=== PATIENT | male | born 1930 | race Caucasian/White ===

== ENCOUNTER 2020-05-23 14:49 | Inpatient (IN) | payer MEDICARE ==
[2020-05-23 15:17] LABS: #Eosinphils 0.2 thou/uL (0.0-0.7); #Lymphocytes 1.6 thou/uL (1.20-3.40); #Monocytes 0.8 thou/uL (0.11-0.59); %Basophils 0.6 % (0.0-1.0); %Eosinophils 3.1 % (0.0-10.0); %Lymphocytes 21.1 % (21.0-51.0); %Monocytes 10.1 % (0.0-10.0); %Neutrophils 65.1 % (42.0-75.0); Hemoglobin 15.2 g/dL (14.0-18.0); Mean Corpuscular HGB CONC 32.3 g/dL (32.0-36.0); Mean Corpuscular Hemoglobin 30.5 pg (27.0-31.0); Mean Corpuscular Volume 94.3 fL (78.0-98.0); Mean Platelet Volume 8.9 fL (7.4-10.4); Platelet Count 175 thou/uL (130-400); RBC Distribution Width 14.2 % (11.5-14.5); Red Blood Cell (RBC) Count 4.98 mill/uL (4.70-6.10); White Blood Cell (WBC) Count 7.6 thou/uL (4.8-10.8)
[2020-05-23 15:24] LABS: PTT 34.6 sec (22.9-36.1); Prothrombin Time 13.8 sec (12.0-14.7)
[2020-05-23 15:35] LABS: ALT (SGPT) 19 U/L (8-55); AST (SGOT) 14 U/L (5-34); Albumin 3.7 g/dL (3.4-4.8); Alkaline Phosphatase 112 U/L (40-110); Anion Gap 12 mmol/L (10-20); BUN (Urea Nitrogen) 19 mg/dL (8.4-25.7); Bilirubin, Total 0.7 mg/dL (0.2-1.2); CK (CPK) 62 U/L (30-200); Calc. Creatinine Clearance 0 mL/min (70-130); Calcium 9.1 mg/dL (7.8-10.44); Carbon Dioxide 26 mmol/L (23-31); Chloride 109 mmol/L (98-107); Globulin 2.8 g/dL (2.4-3.5); Glucose 63 mg/dL (83-110); Potassium 4.2 mmol/L (3.5-5.1); Protein, Total 6.5 g/dL (5.8-8.1); Sodium 143 mmol/L (136-145)
[2020-05-23] MEDS ORDERED: Dexamethasone 10 MG/ML VIAL ONE (16:31)
[2020-05-23] MEDS ORDERED: Acetaminophen 325 MG TAB PO PRN (20:17)
[2020-05-23] MEDS ORDERED: HYDROcodone/Acetaminophen 5/325 mg Tablet PO PRN (20:17)
[2020-05-23] MEDS ORDERED: Ondansetron PF 4 MG/2 ML Vial IVP PRN (20:17)
[2020-05-23] MEDS ORDERED: Dextrose 5% in Water 1,000 ML IV PRN (20:17)
[2020-05-23] MEDS ORDERED: Ondansetron ODT 4 MG TAB PO PRN (20:17)
[2020-05-23] MEDS ORDERED: Dextrose 50% Abboject 50 ML SYRINGE SLOW IVP PRN (20:17)
[2020-05-24] MEDS ORDERED: Dextrose 50% Abboject 50 ML SYRINGE SLOW IVP PRN (00:14)
[2020-05-24] MEDS ORDERED: Dextrose 5% in Water 1,000 ML IV PRN (00:14)
[2020-05-24 01:55] LABS: SARS-CoV-2 PCR by NAA Not Detected (NotDetected)
[2020-05-24 04:52] LABS: #Lymphocytes 1.1 thou/uL (1.20-3.40); #Monocytes 0.2 thou/uL (0.11-0.59); #Neutrophils 6.4 thou/uL (1.40-6.50); %Lymphocytes 14.8 % (21.0-51.0); %Monocytes 2.4 % (0.0-10.0); %Neutrophils 82.7 % (42.0-75.0); Hemoglobin 15.3 g/dL (14.0-18.0); Mean Corpuscular HGB CONC 32.2 g/dL (32.0-36.0); Mean Corpuscular Hemoglobin 30.3 pg (27.0-31.0); Mean Platelet Volume 8.7 fL (7.4-10.4); Platelet Count 167 thou/uL (130-400); RBC Distribution Width 14.2 % (11.5-14.5); Red Blood Cell (RBC) Count 5.05 mill/uL (4.70-6.10); White Blood Cell (WBC) Count 7.7 thou/uL (4.8-10.8)
[2020-05-24 05:13] LABS: Anion Gap 14 mmol/L (10-20); BUN (Urea Nitrogen) 21 mg/dL (8.4-25.7); Calc. Creatinine Clearance 50 mL/min (70-130); Calcium 9.4 mg/dL (7.8-10.44); Carbon Dioxide 25 mmol/L (23-31); Chloride 107 mmol/L (98-107); Glucose 130 mg/dL (83-110); Potassium 4.4 mmol/L (3.5-5.1); Sodium 142 mmol/L (136-145)
[2020-05-24] MEDS: Dexamethasone 1 MG TAB PO SCH ×2 (08:58→17:04)
[2020-05-24] MEDS: HumaLOG 300 UNITS/3 ML VIAL SC PRN ×2 (11:43→21:26)
[2020-05-24] MEDS ORDERED: levETIRAcetam in NS 500 MG in Premix Bag 1 BAG IVPB SCH (12:30)
[2020-05-24] MEDS: levETIRAcetam in NS 500 MG in Premix Bag 1 BAG IVPB SCH (21:26)
[2020-05-25 02:47] LABS: #Basophils 0.1 thou/uL (0.0-0.2); #Lymphocytes 1.4 thou/uL (1.20-3.40); #Monocytes 0.7 thou/uL (0.11-0.59); #Neutrophils 9.7 thou/uL (1.40-6.50); %Basophils 0.7 % (0.0-1.0); %Eosinophils 0.3 % (0.0-10.0); %Lymphocytes 11.7 % (21.0-51.0); %Monocytes 6.2 % (0.0-10.0); %Neutrophils 81.1 % (42.0-75.0); Hemoglobin 15.4 g/dL (14.0-18.0); Mean Corpuscular HGB CONC 31.4 g/dL (32.0-36.0); Mean Corpuscular Hemoglobin 30.1 pg (27.0-31.0); Mean Corpuscular Volume 95.7 fL (78.0-98.0); Mean Platelet Volume 9.1 fL (7.4-10.4); Platelet Count 183 thou/uL (130-400); RBC Distribution Width 14.4 % (11.5-14.5); Red Blood Cell (RBC) Count 5.12 mill/uL (4.70-6.10)
[2020-05-25 03:04] LABS: Anion Gap 15 mmol/L (10-20); BUN (Urea Nitrogen) 25 mg/dL (8.4-25.7); Calc. Creatinine Clearance 50 mL/min (70-130); Calcium 9.2 mg/dL (7.8-10.44); Carbon Dioxide 22 mmol/L (23-31); Chloride 108 mmol/L (98-107); Glucose 125 mg/dL (83-110); Magnesium 2.4 mg/dL (1.6-2.6); Potassium 4.1 mmol/L (3.5-5.1); Sodium 141 mmol/L (136-145)
[2020-05-25] MEDS: Dexamethasone 1 MG TAB PO SCH ×2 (10:35→17:35)
[2020-05-25] MEDS: levETIRAcetam in NS 500 MG in Premix Bag 1 BAG IVPB SCH ×2 (10:36→20:17)
[2020-05-25] MEDS: HumaLOG 300 UNITS/3 ML VIAL SC PRN (13:39)
[2020-05-25] MEDS ORDERED: Iopamidol 370 76% 50 ML VIAL FS ONE (13:59)
[2020-05-25] MEDS ORDERED: Iopamidol 370 76% 100 ML VIAL ONE (13:59)
[2020-05-26] MEDS: Dexamethasone 1 MG TAB PO SCH ×2 (08:34→17:18)
[2020-05-26] MEDS: levETIRAcetam in NS 500 MG in Premix Bag 1 BAG IVPB SCH ×2 (08:35→20:34)
[2020-05-26] MEDS ORDERED: Sodium Chloride 0.9% 500 ML IV SCH (10:30)
[2020-05-26] MEDS: HumaLOG 300 UNITS/3 ML VIAL SC PRN (12:08)
[2020-05-26] MEDS ORDERED: Magnevist 469MG/ML 20 ML VIAL ONE (13:30)
[2020-05-27] MEDS: levETIRAcetam in NS 500 MG in Premix Bag 1 BAG IVPB SCH ×2 (10:09→21:14)
[2020-05-27] MEDS: Dexamethasone 1 MG TAB PO SCH ×2 (10:09→17:49)
[2020-05-27] MEDS: HumaLOG 300 UNITS/3 ML VIAL SC PRN ×2 (12:34→17:50)
[2020-05-27] MEDS ORDERED: Lorazepam 2 MG/ML VIAL SLOW IVP PRN (17:37)
[2020-05-27] MEDS ORDERED: OLANZapine 10 MG VIAL IM SCH (21:00)
[2020-05-27] MEDS ORDERED: Sterile Water 10 ML VIAL FS PRN (21:00)
[2020-05-27] MEDS: Melatonin 3 MG TAB PO PRN (21:23)
[2020-05-28] MEDS: Dexamethasone 1 MG TAB PO SCH ×2 (10:01→17:30)
[2020-05-28] MEDS: levETIRAcetam in NS 500 MG in Premix Bag 1 BAG IVPB SCH (10:01)
[2020-05-28] MEDS ORDERED: OLANZapine 10 MG VIAL IM PRN (14:48)
[2020-05-28] MEDS ORDERED: Lorazepam 2 MG/ML VIAL SLOW IVP PRN (14:56)
[2020-05-28 15:53] LABS: Anion Gap 14 mmol/L (10-20); BUN (Urea Nitrogen) 26 mg/dL (8.4-25.7); Calc. Creatinine Clearance 50 mL/min (70-130); Calcium 8.8 mg/dL (7.8-10.44); Carbon Dioxide 24 mmol/L (23-31); Chloride 108 mmol/L (98-107); Glucose 151 mg/dL (83-110); Magnesium 2.2 mg/dL (1.6-2.6); Sodium 142 mmol/L (136-145)
[2020-05-28] MEDS: Carvedilol 3.125 MG TAB PO SCH (17:30)
[2020-05-28] MEDS: HumaLOG 300 UNITS/3 ML VIAL SC PRN (17:30)
[2020-05-29] MEDS: Dexamethasone 1 MG TAB PO SCH ×2 (10:05→17:38)
[2020-05-29] MEDS: Carvedilol 3.125 MG TAB PO SCH ×2 (10:05→17:38)
[2020-05-29] MEDS: HumaLOG 300 UNITS/3 ML VIAL SC PRN ×2 (11:23→17:37)
[2020-05-29] MEDS: Melatonin 3 MG TAB PO PRN (22:34)
[2020-05-30] MEDS: Carvedilol 3.125 MG TAB PO SCH ×2 (10:26→16:11)
[2020-05-30] MEDS: Losartan 25 MG TAB PO SCH (10:26)
[2020-05-30] MEDS: Dexamethasone 1 MG TAB PO SCH ×2 (10:26→16:09)
[2020-05-30] MEDS ORDERED: risperiDONE 1 MG TAB PO SCH ×2 (11:00→11:15)
[2020-05-30] MEDS: risperiDONE 1 MG TAB PO SCH (20:22)
[2020-05-30] MEDS: traZODone HCl 50 MG TAB PO SCH (20:22)
[2020-05-30] MEDS ORDERED: risperiDONE 0.25 MG TAB PO SCH (21:00)
[2020-05-31] MEDS: Dexamethasone 1 MG TAB PO SCH ×2 (10:19→16:15)
[2020-05-31] MEDS: Losartan 25 MG TAB PO SCH (10:19)
[2020-05-31] MEDS: risperiDONE 1 MG TAB PO SCH ×2 (10:19→20:18)
[2020-05-31] MEDS: Carvedilol 3.125 MG TAB PO SCH ×2 (10:19→16:26)
[2020-05-31] MEDS: traZODone HCl 50 MG TAB PO SCH (20:18)
[2020-06-01] MEDS: Dexamethasone 1 MG TAB PO SCH ×2 (08:40→17:36)
[2020-06-01] MEDS: risperiDONE 1 MG TAB PO SCH ×2 (08:41→20:36)
[2020-06-01] MEDS: Losartan 25 MG TAB PO SCH (08:41)
[2020-06-01] MEDS: Carvedilol 3.125 MG TAB PO SCH ×2 (08:41→17:36)
[2020-06-01] MEDS: HumaLOG 300 UNITS/3 ML VIAL SC PRN (17:36)
[2020-06-01] MEDS: traZODone HCl 50 MG TAB PO SCH (20:36)
[2020-06-02 04:45] LABS: #Basophils 0.1 thou/uL (0.0-0.2); #Lymphocytes 1.1 thou/uL (1.20-3.40); #Monocytes 0.7 thou/uL (0.11-0.59); #Neutrophils 7.7 thou/uL (1.40-6.50); %Eosinophils 0.4 % (0.0-10.0); %Lymphocytes 11.7 % (21.0-51.0); %Monocytes 7.4 % (0.0-10.0); %Neutrophils 79.4 % (42.0-75.0); Hemoglobin 14.9 g/dL (14.0-18.0); Mean Corpuscular Hemoglobin 31.8 pg (27.0-31.0); Mean Corpuscular Volume 93.5 fL (78.0-98.0); Mean Platelet Volume 9.4 fL (7.4-10.4); Platelet Count 147 thou/uL (130-400); RBC Distribution Width 14.3 % (11.5-14.5); White Blood Cell (WBC) Count 9.7 thou/uL (4.8-10.8)
[2020-06-02 05:14] LABS: Anion Gap 14 mmol/L (10-20); BUN (Urea Nitrogen) 29 mg/dL (8.4-25.7); Calc. Creatinine Clearance 52 mL/min (70-130); Calcium 8.4 mg/dL (7.8-10.44); Carbon Dioxide 20 mmol/L (23-31); Chloride 108 mmol/L (98-107); Glucose 185 mg/dL (83-110); Potassium 4.7 mmol/L (3.5-5.1); Sodium 137 mmol/L (136-145)
[2020-06-02] MEDS ORDERED: Bacitracin Zinc Ointment 30 gm TUBE ONE (06:25)
[2020-06-02] MEDS ORDERED: Lidocaine 0.5%/Epinephrine 1:200,000 50 ml Vial ONE (06:25)
[2020-06-02] MEDS ORDERED: Thrombin 5000 UNITS/5 ML VIAL ONE (07:16)
[2020-06-02] MEDS ORDERED: Fentanyl 100 MCG/2 ML VIAL ONE (07:35)
[2020-06-02] MEDS ORDERED: Phenylephrine 10 MG/ML VIAL ONE (07:35)
[2020-06-02] MEDS ORDERED: PROPOFOL 200 MG/20 ML VIAL ONE (08:18)
[2020-06-02] MEDS ORDERED: Dexamethasone 20 MG/5 ML VIAL ONE (08:18)
[2020-06-02] MEDS ORDERED: Rocuronium Bromide 10 MG/ML (10ML VIAL) ONE (08:18)
[2020-06-02] MEDS ORDERED: Lidocaine 1% PF 5 ML VIAL ONE (08:18)
[2020-06-02] MEDS ORDERED: Ondansetron PF 4 MG/2 ML Vial ONE (08:18)
[2020-06-02] MEDS ORDERED: Glycopyrrolate 0.2 MG/ML 5 ML SYRINGE ONE (08:18)
[2020-06-02] MEDS ORDERED: levETIRAcetam in NS 100 ML ONE (08:47)
[2020-06-02] MEDS ORDERED: Ondansetron PF 4 MG/2 ML Vial IVP PRN (09:43)
[2020-06-02] MEDS ORDERED: Morphine 2 MG/ML VIAL SLOW IVP PRN (09:43)
[2020-06-02] MEDS ORDERED: hydrALAZINE 20 MG/ML VIAL SLOW IVP PRN (09:43)
[2020-06-02] MEDS ORDERED: Labetalol HCl 100 MG/20 ML VIAL SLOW IVP PRN (09:43)
[2020-06-02] MEDS ORDERED: Sodium Chloride 0.9% 1,000 ML IV SCH ×2 (09:45→19:00)
[2020-06-02] MEDS ORDERED: Promethazine HCl 25 MG/ML VIAL IM PRN (09:54)
[2020-06-02] MEDS ORDERED: Ondansetron HCl/PF 4 MG/2 ML Vial IVP PRN (09:54)
[2020-06-02] MEDS ORDERED: Promethazine HCl 25 MG/ML VIAL SLOW IVP PRN (09:54)
[2020-06-02] MEDS: Losartan 25 MG TAB PO SCH (11:19)
[2020-06-02] MEDS: risperiDONE 1 MG TAB PO SCH ×2 (11:19→20:41)
[2020-06-02] MEDS: Dexamethasone 1 MG TAB PO SCH ×2 (11:19→16:58)
[2020-06-02] MEDS: Carvedilol 3.125 MG TAB PO SCH ×2 (11:19→16:58)
[2020-06-02] MEDS: CEFAZOLIN 2 GM in Premix Bag 1 BAG IVPB SCH (16:56)
[2020-06-02] MEDS: traZODone HCl 50 MG TAB PO SCH (20:41)
[2020-06-02] MEDS: levETIRAcetam 500 MG TAB PO SCH (20:41)
[2020-06-03] MEDS: CEFAZOLIN 2 GM in Premix Bag 1 BAG IVPB SCH (00:07)
[2020-06-03] MEDS: Dexamethasone 1 MG TAB PO SCH ×2 (08:32→16:44)
[2020-06-03] MEDS: Carvedilol 3.125 MG TAB PO SCH ×2 (08:33→16:44)
[2020-06-03 08:34] LABS: #Lymphocytes 1.5 thou/uL (1.20-3.40); #Monocytes 1.3 thou/uL (0.11-0.59); #Neutrophils 14.1 thou/uL (1.40-6.50); %Basophils 0.1 % (0.0-1.0); %Eosinophils 0.2 % (0.0-10.0); %Monocytes 7.5 % (0.0-10.0); %Neutrophils 83.1 % (42.0-75.0); Hemoglobin 15.5 g/dL (14.0-18.0); Mean Corpuscular HGB CONC 32.2 g/dL (32.0-36.0); Mean Corpuscular Hemoglobin 30.2 pg (27.0-31.0); Mean Corpuscular Volume 93.8 fL (78.0-98.0); Mean Platelet Volume 9.4 fL (7.4-10.4); Platelet Count 163 thou/uL (130-400); RBC Distribution Width 14.6 % (11.5-14.5); Red Blood Cell (RBC) Count 5.15 mill/uL (4.70-6.10)
[2020-06-03] MEDS: levETIRAcetam 500 MG TAB PO SCH ×2 (08:36→21:40)
[2020-06-03] MEDS: risperiDONE 1 MG TAB PO SCH ×2 (08:36→21:40)
[2020-06-03 08:41] LABS: ALT (SGPT) 17 U/L (8-55); AST (SGOT) 9 U/L (5-34); Albumin 3.4 g/dL (3.4-4.8); Alkaline Phosphatase 98 U/L (40-110); Anion Gap 13 mmol/L (10-20); BUN (Urea Nitrogen) 28 mg/dL (8.4-25.7); Bilirubin, Total 0.9 mg/dL (0.2-1.2); Calc. Creatinine Clearance 49 mL/min (70-130); Calcium 8.9 mg/dL (7.8-10.44); Carbon Dioxide 27 mmol/L (23-31); Chloride 105 mmol/L (98-107); Globulin 2.6 g/dL (2.4-3.5); Glucose 110 mg/dL (83-110); Potassium 4.8 mmol/L (3.5-5.1); Sodium 140 mmol/L (136-145)
[2020-06-03] MEDS: Losartan 25 MG TAB PO SCH (08:45)
[2020-06-03] MEDS: traZODone HCl 50 MG TAB PO SCH (21:40)
[2020-06-03] MEDS: HumaLOG 300 UNITS/3 ML VIAL SC PRN (21:42)
[2020-06-04 05:48] LABS: #Lymphocytes 0.9 thou/uL (1.20-3.40); #Monocytes 0.8 thou/uL (0.11-0.59); #Neutrophils 12.4 thou/uL (1.40-6.50); %Eosinophils 0.1 % (0.0-10.0); %Lymphocytes 6.7 % (21.0-51.0); %Monocytes 5.8 % (0.0-10.0); %Neutrophils 87.5 % (42.0-75.0); Hemoglobin 14.6 g/dL (14.0-18.0); Mean Platelet Volume 9.4 fL (7.4-10.4); Platelet Count 133 thou/uL (130-400); RBC Distribution Width 14.5 % (11.5-14.5); White Blood Cell (WBC) Count 14.1 thou/uL (4.8-10.8)
[2020-06-04 06:12] LABS: ALT (SGPT) 10 U/L (8-55); AST (SGOT) 8 U/L (5-34); Albumin 3.1 g/dL (3.4-4.8); Alkaline Phosphatase 93 U/L (40-110); Anion Gap 15 mmol/L (10-20); BUN (Urea Nitrogen) 31 mg/dL (8.4-25.7); Bilirubin, Total 0.8 mg/dL (0.2-1.2); Calc. Creatinine Clearance 52 mL/min (70-130); Calcium 8.5 mg/dL (7.8-10.44); Carbon Dioxide 24 mmol/L (23-31); Chloride 101 mmol/L (98-107); Globulin 2.5 g/dL (2.4-3.5); Glucose 145 mg/dL (83-110); Potassium 4.5 mmol/L (3.5-5.1); Protein, Total 5.6 g/dL (5.8-8.1); Sodium 135 mmol/L (136-145)
[2020-06-04] MEDS: Dexamethasone 1 MG TAB PO SCH ×3 (10:01→17:41)
[2020-06-04] MEDS: levETIRAcetam 500 MG TAB PO SCH ×2 (10:02→20:26)
[2020-06-04] MEDS: Losartan 25 MG TAB PO SCH (10:02)
[2020-06-04] MEDS: Carvedilol 3.125 MG TAB PO SCH ×2 (10:02→17:42)
[2020-06-04] MEDS: risperiDONE 1 MG TAB PO SCH ×2 (10:02→20:26)
[2020-06-04] MEDS: HumaLOG 300 UNITS/3 ML VIAL SC PRN ×2 (17:42→21:28)
[2020-06-04] MEDS: traZODone HCl 50 MG TAB PO SCH (20:26)
[2020-06-04] MEDS: Senokot 8.6 MG TAB PO SCH (20:28)
[2020-06-05 05:59] LABS: #Basophils 0.1 thou/uL (0.0-0.2); #Lymphocytes 1.3 thou/uL (1.20-3.40); #Monocytes 0.7 thou/uL (0.11-0.59); #Neutrophils 14.3 thou/uL (1.40-6.50); %Basophils 0.4 % (0.0-1.0); %Eosinophils 0.2 % (0.0-10.0); %Lymphocytes 7.8 % (21.0-51.0); %Monocytes 4.1 % (0.0-10.0); %Neutrophils 87.5 % (42.0-75.0); Hemoglobin 15.5 g/dL (14.0-18.0); Mean Corpuscular Volume 94.2 fL (78.0-98.0); Mean Platelet Volume 9.5 fL (7.4-10.4); Platelet Count 121 thou/uL (130-400); RBC Distribution Width 14.3 % (11.5-14.5); Red Blood Cell (RBC) Count 4.98 mill/uL (4.70-6.10); White Blood Cell (WBC) Count 16.3 thou/uL (4.8-10.8)
[2020-06-05 06:16] LABS: ALT (SGPT) 9 U/L (8-55); AST (SGOT) 10 U/L (5-34); Albumin 3.1 g/dL (3.4-4.8); Alkaline Phosphatase 87 U/L (40-110); Anion Gap 16 mmol/L (10-20); BUN (Urea Nitrogen) 34 mg/dL (8.4-25.7); Bilirubin, Total 0.7 mg/dL (0.2-1.2); Calc. Creatinine Clearance 60 mL/min (70-130); Calcium 8.4 mg/dL (7.8-10.44); Carbon Dioxide 18 mmol/L (23-31); Chloride 106 mmol/L (98-107); Globulin 2.5 g/dL (2.4-3.5); Glucose 148 mg/dL (83-110); Potassium 4.6 mmol/L (3.5-5.1); Protein, Total 5.6 g/dL (5.8-8.1); Sodium 135 mmol/L (136-145)
[2020-06-05] MEDS: HumaLOG 300 UNITS/3 ML VIAL SC PRN ×3 (06:31→17:25)
[2020-06-05] MEDS: Dexamethasone 1 MG TAB PO SCH ×3 (09:05→17:25)
[2020-06-05] MEDS: levETIRAcetam 500 MG TAB PO SCH ×2 (09:05→20:03)
[2020-06-05] MEDS: Polyethylene Glycol 3350 17 GM Packet PO SCH (09:05)
[2020-06-05] MEDS: Senokot 8.6 MG TAB PO SCH ×2 (09:06→20:04)
[2020-06-05] MEDS: risperiDONE 1 MG TAB PO SCH ×2 (09:06→20:03)
[2020-06-05] MEDS: Carvedilol 3.125 MG TAB PO SCH ×2 (09:07→17:25)
[2020-06-05] MEDS: Losartan 25 MG TAB PO SCH (09:07)
[2020-06-05] MEDS: traZODone HCl 50 MG TAB PO SCH (20:04)
[2020-06-06 05:31] LABS: #Lymphocytes 1.1 thou/uL (1.20-3.40); #Monocytes 0.5 thou/uL (0.11-0.59); #Neutrophils 12.8 thou/uL (1.40-6.50); %Basophils 0.1 % (0.0-1.0); %Eosinophils 0.1 % (0.0-10.0); %Lymphocytes 7.8 % (21.0-51.0); %Monocytes 3.7 % (0.0-10.0); %Neutrophils 88.4 % (42.0-75.0); Mean Corpuscular HGB CONC 31.7 g/dL (32.0-36.0); Mean Corpuscular Hemoglobin 29.7 pg (27.0-31.0); Mean Corpuscular Volume 93.6 fL (78.0-98.0); Mean Platelet Volume 9.4 fL (7.4-10.4); Platelet Count 158 thou/uL (130-400); RBC Distribution Width 14.4 % (11.5-14.5); Red Blood Cell (RBC) Count 5.05 mill/uL (4.70-6.10); White Blood Cell (WBC) Count 14.5 thou/uL (4.8-10.8)
[2020-06-06 05:56] LABS: ALT (SGPT) 21 U/L (8-55); AST (SGOT) 13 U/L (5-34); Albumin 3.3 g/dL (3.4-4.8); Alkaline Phosphatase 90 U/L (40-110); Anion Gap 13 mmol/L (10-20); BUN (Urea Nitrogen) 41 mg/dL (8.4-25.7); Bilirubin, Total 0.5 mg/dL (0.2-1.2); Calc. Creatinine Clearance 42 mL/min (70-130); Carbon Dioxide 26 mmol/L (23-31); Chloride 105 mmol/L (98-107); Globulin 2.7 g/dL (2.4-3.5); Glucose 157 mg/dL (83-110); Potassium 5.2 mmol/L (3.5-5.1); Sodium 139 mmol/L (136-145)
[2020-06-06] MEDS: risperiDONE 1 MG TAB PO SCH ×2 (08:59→20:03)
[2020-06-06] MEDS: Carvedilol 3.125 MG TAB PO SCH ×2 (08:59→17:46)
[2020-06-06] MEDS: Senokot 8.6 MG TAB PO SCH ×2 (08:59→20:03)
[2020-06-06] MEDS: Dexamethasone 1 MG TAB PO SCH ×3 (08:59→17:46)
[2020-06-06] MEDS: Losartan 25 MG TAB PO SCH (09:00)
[2020-06-06] MEDS: Polyethylene Glycol 3350 17 GM Packet PO SCH (09:00)
[2020-06-06] MEDS: levETIRAcetam 500 MG TAB PO SCH ×2 (09:00→20:02)
[2020-06-06] MEDS: HumaLOG 300 UNITS/3 ML VIAL SC PRN ×2 (12:17→17:46)
[2020-06-06] MEDS: traZODone HCl 50 MG TAB PO SCH (20:02)
[2020-06-07] MEDS: HumaLOG 300 UNITS/3 ML VIAL SC PRN ×4 (05:42→20:15)
[2020-06-07] MEDS: Senokot 8.6 MG TAB PO SCH ×2 (09:09→19:40)
[2020-06-07] MEDS: Dexamethasone 1 MG TAB PO SCH ×3 (09:09→17:55)
[2020-06-07] MEDS: Losartan 25 MG TAB PO SCH (09:09)
[2020-06-07] MEDS: risperiDONE 1 MG TAB PO SCH ×2 (09:09→19:40)
[2020-06-07] MEDS: Carvedilol 3.125 MG TAB PO SCH ×2 (09:10→17:55)
[2020-06-07] MEDS: levETIRAcetam 500 MG TAB PO SCH ×2 (09:10→19:39)
[2020-06-07] MEDS: Polyethylene Glycol 3350 17 GM Packet PO SCH (09:11)
[2020-06-07 11:42] VITALS: BMI 22.8
[2020-06-07] MEDS ORDERED: Dexamethasone 4 MG TAB PO SCH (18:00)
[2020-06-07] MEDS: Melatonin 3 MG TAB PO PRN (19:39)
[2020-06-07] MEDS: traZODone HCl 50 MG TAB PO SCH (19:39)
[2020-06-08] MEDS: Polyethylene Glycol 3350 17 GM Packet PO SCH (08:34)
[2020-06-08] MEDS: risperiDONE 1 MG TAB PO SCH ×2 (08:34→20:20)
[2020-06-08] MEDS: levETIRAcetam 500 MG TAB PO SCH ×2 (08:34→20:21)
[2020-06-08] MEDS: Senokot 8.6 MG TAB PO SCH ×2 (08:34→20:20)
[2020-06-08] MEDS: Dexamethasone 4 MG TAB PO SCH ×3 (08:34→17:11)
[2020-06-08] MEDS: Carvedilol 3.125 MG TAB PO SCH ×2 (08:38→17:13)
[2020-06-08] MEDS: Losartan 25 MG TAB PO SCH (08:38)
[2020-06-08] MEDS: HumaLOG 300 UNITS/3 ML VIAL SC PRN ×2 (12:55→20:34)
[2020-06-08] MEDS: Lorazepam 1 MG TAB PO PRN (17:12)
[2020-06-08] MEDS: Melatonin 3 MG TAB PO PRN (20:21)
[2020-06-08] MEDS: traZODone HCl 50 MG TAB PO SCH (20:21)
[2020-06-09] MEDS: Carvedilol 3.125 MG TAB PO SCH ×2 (08:55→16:11)
[2020-06-09] MEDS: Losartan 25 MG TAB PO SCH (08:55)
[2020-06-09] MEDS: risperiDONE 1 MG TAB PO SCH ×2 (08:56→20:08)
[2020-06-09] MEDS: Senokot 8.6 MG TAB PO SCH ×2 (08:56→22:36)
[2020-06-09] MEDS: levETIRAcetam 500 MG TAB PO SCH ×2 (08:56→20:08)
[2020-06-09] MEDS: Dexamethasone 4 MG TAB PO SCH ×3 (08:57→16:11)
[2020-06-09] MEDS: Polyethylene Glycol 3350 17 GM Packet PO SCH (08:57)
[2020-06-09] MEDS: HumaLOG 300 UNITS/3 ML VIAL SC PRN ×2 (16:11→20:33)
[2020-06-09] MEDS: Melatonin 3 MG TAB PO PRN (20:08)
[2020-06-09] MEDS: traZODone HCl 50 MG TAB PO SCH (20:08)
[2020-06-10] MEDS: Dexamethasone 4 MG TAB PO SCH ×3 (08:55→17:44)
[2020-06-10] MEDS: levETIRAcetam 500 MG TAB PO SCH (08:55)
[2020-06-10] MEDS: risperiDONE 1 MG TAB PO SCH (08:55)
[2020-06-10] MEDS: Senokot 8.6 MG TAB PO SCH (08:56)
[2020-06-10] MEDS: Losartan 25 MG TAB PO SCH (08:56)
[2020-06-10] MEDS: Polyethylene Glycol 3350 17 GM Packet PO SCH (08:56)
[2020-06-10] MEDS: Carvedilol 3.125 MG TAB PO SCH ×2 (08:56→17:44)
[2020-06-10] MEDS: HumaLOG 300 UNITS/3 ML VIAL SC PRN ×2 (14:12→17:45)
[2020-06-10 16:26] VITALS: BP 106/65; TEMP 98.1
[2020-06-10] MEDS: Lorazepam 1 MG TAB PO PRN (17:44)
== END 2020-06-10 19:12 | disposition home or self-care (01) | DRG 25 ==
LOC: ERS 14:49 → ERHOLD 16:06 → 2SE 18:57 → CCU 06-02 11:33 → SURG B 06-03 14:17
PROVIDERS: ADMIT Internal Medicine; ATTEND Hospitalist
PROC: 00B00ZX Excision of Brain, Open Approach, Diagnostic (ICD-10-PCS; principal; 2020-05-23)
DX: C71.9 Malignant neoplasm of brain, unspecified (principal); G93.6 Cerebral edema; I47.1 Supraventricular tachycardia; I42.9 Cardiomyopathy, unspecified; I50.22 Chronic systolic (congestive) heart failure; I13.0 Hypertensive heart and chronic kidney disease with heart failure and stage 1 through stage 4 chronic kidney disease, or unspecified chronic kidney disease; Z51.5 Encounter for palliative care; Z66 Do not resuscitate; Z20.822 Contact with and (suspected) exposure to COVID-19; E11.649 Type 2 diabetes mellitus with hypoglycemia without coma; E78.5 Hyperlipidemia, unspecified; E03.9 Hypothyroidism, unspecified; K21.9 Gastro-esophageal reflux disease without esophagitis; I25.10 Atherosclerotic heart disease of native coronary artery without angina pectoris; C61 Malignant neoplasm of prostate; N40.0 Benign prostatic hyperplasia without lower urinary tract symptoms; F41.0 Panic disorder [episodic paroxysmal anxiety]; I45.81 Long QT syndrome; F29 Unspecified psychosis not due to a substance or known physiological condition; N18.2 Chronic kidney disease, stage 2 (mild); E11.22 Type 2 diabetes mellitus with diabetic chronic kidney disease; Z95.810 Presence of automatic (implantable) cardiac defibrillator; I25.2 Old myocardial infarction; Z95.5 Presence of coronary angioplasty implant and graft; Z88.8 Allergy status to other drugs, medicaments and biological substances; Z79.82 Long term (current) use of aspirin; Z79.899 Other long term (current) drug therapy; Z91.81 History of falling; Z87.891 Personal history of nicotine dependence
CPT/HCPCS: 36415; 36416; 70450; 70553; 71045; 71260; 74177; 77014; 77300; 77301; 77334; 77338; 80048; 80053; 81287; 81479; 82550; 83735; 83880; 84484; 85025; 85610; 85730; 87635; 88307; 88341; 88342; 88360; 93005; 93010; 93306; 96374; A9579; C1713; C1769; J0360; J0690; J1100; J1815; J1953; J2001; J2060; J2270; J2358; J2370; J2405; J2704; J3010; J8540; Q9967; U0003; U0005